=== PATIENT | female | born 1980 | race Caucasian/White ===

== ENCOUNTER 2016-05-15 16:30 | Emergency (ER) | payer OTHER ==
--- NOTE | 2016-05-15 17:03 | PROVIDER DOCUMENTATION ---
HPI-Syncope/Dizziness - General Chief Complaint: Syncope Stated Complaint: CP,CLEMONS,SYNCOPE Time Seen by Provider: 05/15/16 16:57 Source: patient Allergies/Adverse Reactions: Patient Allergies Allergy/AdvReac Type Severity Reaction Status Date / Time cefaclor [From Ceclor] Allergy HIVES Verified 05/15/16 16:52 peanut Allergy ANAPHYLAXIS Verified 05/15/16 16:52 Sulfa (Sulfonamide Allergy HIVES Verified 05/15/16 16:52 Antibiotics) Home Medications: Home Medication List Medication Instructions Recorded Confirmed Last Taken Type Amlodipine [Norvasc] 5 mg PO DAILY 05/15/16 05/15/16 05/15/16 History Metoprolol [Lopressor] 50 mg PO DAILY 05/15/16 05/15/16 05/15/16 History Potassium Chloride [K-Tab ER] 20 meq PO BID #20 tablet.er 05/15/16 Unknown Rx Triamterene/Hydrochlorothiazid 1 each PO DAILY 05/15/16 05/15/16 05/15/16 History [Triamterene-Hctz 75-50 mg Tab] Venlafaxine [Effexor] 75 mg PO DAILY 05/15/16 05/15/16 05/15/16 History - History of Present Illness-Syncope/Dizzy Nature of Presenting Problem: 35 yof c/o possible syncopal episode at home. Pt had a headache earlier at work during the day and left work early and went home to rest. While sitting patient felt like she may have loss of consciousness when came back she was having some chest pain and SOB. Pt denies any nausea or vomiting. If witnessed syncope, by whom?: not witnessed Prior Episodes: reports: no prior history Onset/Duration: reports: abrupt Timing: reports: intermittent Position/Activity at time of episode: reports: sitting Symptoms prior to episode: reports: headache Context: reports: other (Pt unsure if she ever had a LOC but definitely felt "wierd" after the event.) Location of injury. (If syncope resulted in an injury.): reports: none Current Symptoms: reports: chest pain Recently Seen Here or By Another Healthcare Provider: No - Dizziness Severity in ED: reports: mild Dizziness Related Current/Associated Symptoms: reports: none/feels normal Any recent trauma/injury?: reports: none Modifying Factors: improves with: nothing Patient usually:: reports: walks without assistance Review of Systems - Adult - REVIEW OF SYSTEMS - ADULT Constitutional: reports: see HPI. denies: no symptoms reported, chills, fever, fatique, night sweats, weight gain, weight loss, other Eyes: reports: no symptoms reported. denies: see HPI, discharge, dry eyes, decreased vision, blurred vision, double vision, eye pain, redness, other Ears, Nose, Mouth & Throat: reports: no symptoms reported. denies: see HPI, ear discharge, ear pain, hearing loss, tinnitus, epistaxis, sinus problem, nose pain, loose teeth, mouth/dental pain, mouth swelling, hoarseness, throat pain, throat swelling, other Cardiovascular: reports: see HPI, chest pain, syncope. denies: no symptoms reported, edema, heart murmur, irregular heart rate, orthopnea, palpitations, poor circulation, PND, other Respiratory: reports: see HPI, shortness of breath. denies: no symptoms reported, chronic cough, cough, dyspnea on exertion, excessive sputum production , hemoptysis, pleurisy, wheezing, other Gastrointestinal: reports: no symptoms reported. denies: see HPI, abdominal pain, hematemesis, constipation, diarrhea, difficulty swallowing, frequent heartburn, nausea, poor appetite, rectal bleeding, vomiting, other Genitourinary: reports: no symptoms reported. denies: see HPI, dysuria, discharge, frequency, flank pain, frequent UTI's, hematuria, hesitency, incontinence, urinary retention, urgency, other Musculoskeletal: reports: no symptoms reported. denies: see HPI, bone pain, back pain, frequent leg cramps, joint pain, joint swelling, muscle aches, muscle weakness, neck pain, other Integumentary: reports: no symptoms reported. denies: see HPI, hives, hair loss , itching, mole changes, nail changes, rash, skin sores/ulcer, skin thickening, other Neurological: reports: see HPI, dizziness/vertigo Psychiatric: reports: no symptoms reported. denies: see HPI, anxiety, anti- depressant use, alcohol/drug dependence, depression, emotional problems, insomnia, panic attacks, suicidal thoughts, other All Other Systems: Reviewed and Negative Past History - Adult - PAST MEDICAL HISTORY-ADULT Review of Records: reports: Old Records Reviewed, Nursing Assessment Review, Medications Reviewed, Social history reviewed & non-contributory. Cardiovascular: reports: HTN Physical Exam-General - PHYSICAL EXAM-ADULT Initial Vital Signs Reviewed: Yes - CONSTITUTIONAL General Appearance: appears well, alert, no apparent distress. negative: mild distress, moderate distress, severe distress, cachetic, obese, thin, anxious, lethargic, slow to respond, obtunded, combative, other - EYES Eyes: PERRL/EOMI, pink conjunctivae. negative: fundi clear, no AV nicking, anisocoria, conjuctival exudate, EOM palsy, meningismus, pale conjunctivae, photophobia, sclera injected, scleral icterus, subconjunctival hemorrhage, sunken eyes, other - HEAD, EARS, NOSE, MOUTH & THROAT HENMT: normocephalic/atraumatic, moist mucous membranes, normal ENT inspection, TMs normal, pharynx normal. negative: angioedema, dental decay, hearing deficit , pharyngeal erythema, tonsillar exudate, TM abnormal, TM obscurred by cerumen, frontal tenderness, maxillary tenderness, other - NECK Neck: non-tender, full range of motion, supple, normal inspection. negative: Brudzinski's sign, carotid bruit, C-spine tenderness, limited range of motion, lymphadenopathy, meningismus, trachial deviation, tender lateral, tender midline , thyromegaly, other - RESPIRATORY Respiratory: chest non-tender, lungs clear, normal breath sounds, no pleuratic chest pain, no respiratory distress, no accessory muscle use. negative: respiratory distress, decreased breath sounds, accessory muscle use, crackles, rales, rhonchi, stridor, wheezing, dull on percussion, prolonged expiration, pain on inspiration, plerual rub, retractions, splinting, decreased rate, increased rate, crepitus, other - CARDIOVASCULAR Cardiovascular: normal peripheral pulses, regular rate, rhythm, no edema, no gallop, no JVD, no murmur. negative: JVD, bradycardia, tachycardia, diastolic murmur, systolic murmur, gallop/S3, gallop/S4, extra beats, friction rub, irregularly irregular, PMI displaced laterally, other - CHEST (BREASTS) Chest/Breast: no tenderness - GASTROINTESTINAL (ABDOMEN) Abdominal Exam: normal bowel sounds, non tender, soft, no organomegaly, no pulsatile mass. negative: abdominal bruit, abnormal bowel sounds, distended, guarding, rigid, rebound, tenderness, hernia, mass, hepatomegaly, spleenomegaly , McBurney's point tenderness, Brantley's sign, obturator sign, prominent aortic pulsations, psoas, Rovsing's sign, other - GENITOURINARY Female Genitalia/Pelvic Exam: deferred - LYMPHATIC Lymphatic: no adenopathy. negative: axilla node tender, cervical node tenderness, inguinal node tender, enlargement, striations, streaking, other - MUSCULOSKELETAL Back Exam: normal inspection, no CVA tenderness, no vertebral tenderness. negative: CVA tenderness, decreased range of motion, ecchymosis, kyphosis, lordosis, muscle spasm, scoliosis, swelling, vertebral tenderness, other Extremity: normal range of motion, non-tender, normal gait, normal inspection, no pedal edema, no calf tenderness, normal capillary refill. negative: pelvis stable, abnormal NV exam, calf tenderness, deformity, erythema, inflammation, joint effusion, pulse deficit, pedal edema, slow capillary refill, swelling, tenderness, other - SKIN Integumentary: normal color, normal turgor, warm/dry. negative: abrasion(s), blanching, cyanosis, diaphoresis, decubitus, dependent lividity, ecchymosis, embolic lesions, erythema, signs of IVDA, jaundice, laceration(s), mottled, pallor, petechiae, purpura, rash, swelling, tenderness, warm, zoster-like rash, other - NEUROLOGIC Neurologic: signal and communications maintainer II-XII nml as tested, grossly normal, no motor/sensory deficits . negative: abnormal cerebellar tests, abnormal signal and communications maintainer II-XII, abnormal gait, aphasia, EOM palsy, facial droop, focal weakness, motor weakness, sensory deficit, negative romberg's sign, positive romberg's sign, other - PSYCHIATRIC Psych/Mental Status: normal mood/affect, normal thought content, normal thought process, oriented x 3 Progress - XRAY 1 XRAY Study: Chest Impression: Normal (normal per radiologist) Departure - Departure Time of Disposition Order: 18:32 DIAGNOSIS: Hypokalemia Disposition: HOME 01 Certified Medical Emergency: Emergent Condition: Stable Additional Instructions: ED Follow Up Instructions: You have been treated by a care provider in the Emergency Department. These instructions are being provided to you so you can have an understanding of how to care for yourself upon discharge. Upon discharge from the Emergency Department, you are responsible for making arrangements for follow-up care by a physician of your choice. Take all prescribed medications as directed. Return to the Emergency Department immediately for any new or worsening symptoms. You may call the Physician Referral phone number at [phone] to obtain a list of Physicians who are taking new patients. Prescriptions: Potassium Chloride [K-Tab ER] 20 meq PO BID #20 tablet.er Referrals: Areli Villalobos MD [Primary Care Provider] - Forms: Return to School/Parent Work Instructions: Hypokalemia Attestation - Physician/ BEHZAD Attestation Patient care was provided by Advanced Practice Provider:: Yes Advanced Practice Provider:: Michael Davis Advanced Practice Provider documentation review:: The Mid-level provider documentation, treatment plan and medical decision making was reviewed by the physician who agrees with all treatment and medical decision making by the MLP. Physician Attestation - Physician Attestation I, the provider, attest to the following statement:: Michael Davis Physician documentation Attestation:: This documentation recorded by the scribe accurately reflects the service I personally performed and the decisions made by me.
[2016-05-15] MEDS ORDERED: ASPIRIN PO STA (17:04)
[2016-05-15] MEDS ORDERED: NS 1,000 ML IV ONE (17:11)
[2016-05-15 17:27] LABS: MANUAL DIFF NEEDED? NO
[2016-05-15 17:31] LABS: BASO% 0.4 % (0.0-0.8); EOS# 0.87 X1000 (0.0-0.7); EOS% 7.7 % (0.0-10.0); HEMATOCRIT 40.9 % (37.0-47.0); HEMOGLOBIN 13.7 g/dL (12.0-16.0); IMM GRAN# 0.02 X1000 (0.0-0.04); IMM GRAN% 0.2 % (0.0-0.5); LYMPH# 2.76 X1000 (1.2-3.4); LYMPH% 24.5 % (20.5-51.1); MCHC 33.5 g/dL (33-37); MCV 80.7 FL (81-99); MONO# 0.82 X1000 (0.11-0.59); MONO% 7.3 % (1.7-9.3); MPV 11.5 FL (7.4-10.4); NEUT% 59.9 % (42.2-75.2); PLT 301 X1000 (130-400); RBC 5.07 XMIL (4.2-5.4)
[2016-05-15 18:07] LABS: PTT 22.5 Seconds (22.0-36.0)
[2016-05-15 18:08] LABS: ALBUMIN 4.2 g/dL (3.5-5.0); INR 0.93; MAGNESIUM 1.7 mg/dL (1.5-2.7); POTASSIUM 2.8 mmol/L (3.5-5.1); PROTIME 9.5 Seconds (9.2-11.7); TOTAL BILIRUBIN 0.43 mg/dL (0.20-1.00); TOTAL PROTEIN 7.1 g/dL (6.3-8.3)
[2016-05-15] MEDS ORDERED: KLOR-CON PO ONE (18:10)
[2016-05-15 19:07] VITALS: BP 142/60
--- NOTE | 2016-05-16 06:03 | EKG Report ---
Test Performed on : 05/15/2016 4:44:15 PM Test Reason : syncope Blood Pressure : / mmHG Vent. Rate : 095 BPM Atrial Rate : 095 BPM P-R Int : 146 ms QRS Dur : 102 ms QT Int : 380 ms P-R-T Axes : 043 135 032 degrees QTc Int : 477 ms Normal sinus rhythm. Possible Left atrial enlargement Right axis deviation Incomplete right bundle branch block Abnormal ECG No previous ECGs available Unconfirmed Result
--- NOTE | 2016-05-16 07:29 | Diag Imaging Result Document ---
PROCEDURE NAME: CHEST-2 VIEWS - 05/15/2016 FRONTAL AND LATERAL CHEST, TWO VIEWS: FINDINGS: The lungs are well expanded. The heart is not enlarged. The vessels are not distended. No pneumonia. No pleural effusions. No free air beneath the diaphragm. IMPRESSION: No acute abnormality.
[2016-05-16 13:01] LABS: FREE T4 1.09 ng/dL (0.93-1.70)
== END 2016-05-15 19:59 | disposition home or self-care (01) ==
LOC: ED 16:30
DX: E87.6 Hypokalemia (principal); R55 Syncope and collapse; R07.9 Chest pain, unspecified; R06.02 Shortness of breath; R51 Headache; R42 Dizziness and giddiness; I10 Essential (primary) hypertension; Z79.899 Other long term (current) drug therapy
CPT/HCPCS: 71020; 80053; 82550; 82948; 83735; 83880; 84439; 84443; 84484; 85025; 85379; 85610; 85730; 93005; 96360; 96361; J7030